=== PATIENT | male | born 2000 | race Caucasian/White ===

== ENCOUNTER 2020-03-06 09:39 | Inpatient (IN) | payer OTHER ==
[~2020-03-06] VITALS: Ht 154.9 cm; Wt 90.9 kg
--- NOTE | 2020-03-06 10:30 | RAD ---
Right knee 3 views. HISTORY: Right knee injury, fell yesterday 3 views were taken of the right knee. There is not evidence of an acute fracture or osseous abnormali ty or joint effusion. IMPRESSION: 1. Negative right knee. Electronically signed by: Jovan Aguayo MD (03/06/2020 10:28 AM) [id number]
--- NOTE | 2020-03-06 10:32 | RAD ---
Right wrist 3 views. HISTORY: Fell yesterday, wrist injury 3 views were taken of the right wrist. There is a fracture the distal radius with mild dorsal displac ement and angulation. There is impaction at the posterior cortex. There is a fracture of the ulnar st yloid. IMPRESSION: 1. Displaced angulated fracture distal radius with fracture ulnar styloid. Electronically signed by: Jovan Aguayo MD (03/06/2020 10:30 AM) [id number]
[2020-03-06 11:20] LABS: BASO # 0.1 x10^3/uL (0.0-0.2); BASO % 1 % (0-3); EOS % 0 % (0-3); HEMATOCRIT 44.3 % (39.0-53.0); HEMOGLOBIN 15.5 g/dL (13.0-17.5); LYMPH # 3.1 x10^3/uL (1.0-4.8); LYMPH % 25 % (24-48); MEAN CORPUSCULAR HEMOGLOBIN 30 pg (25-35); MEAN CORPUSCULAR HGB CONC 35 g/dL (31-37); MEAN CORPUSCULAR VOLUME 85 fL (79-100); MONO # 1.3 x10^3/uL (0.0-1.1); MONO % 10 % (0-9); NEUT % 64 % (31-73); PLATELET COUNT 286 x10^3/uL (140-400); RED BLOOD COUNT 5.22 x10^6/uL (4.30-5.70); RED CELL DISTRIBUTION WIDTH 13.3 % (11.5-14.5); WHITE BLOOD COUNT 12.5 x10^3/uL (4.0-11.0)
[2020-03-06 11:25] LABS: CALCIUM 9.5 mg/dL (8.5-10.1); CREATININE 1.3 mg/dL (0.7-1.3); GFR 71.1
[2020-03-06] MEDS ORDERED: ONDANSETRON PF 4 MG/2 ML VIAL. IVP PRN (11:45)
[2020-03-06] MEDS ORDERED: MORPHINE SULFATE 4 MG/ML VIAL. IV ONE (11:45)
--- NOTE | 2020-03-06 12:11 | PDOC2 ---
CONSULT Date of Consult Date of Consult DATE: 03/06/20 TIME: 12:10 Reason for Consult Reason for Consult: Right wrist fracture Identification/Chief Complaint Chief Complaint Right wrist pain after a fall and right knee swelling Source Source: Chart review, Patient History of Present Illness Reason for Visit: This 19-year-old left-handed young man was skiing at [employer] and fell injuring his right wrist and his right knee. X-rays in the emergency room rob wed a displaced distal radius fracture. He was admitted for operative care of the displaced distal radius fracture. He has a massive knee effusion. 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 (I happen to be friends of the [employer], Jared Douglas, whom the patient knows.) Past Surgical History Past Surgical History wisdom teeth Current Medications Current Medications Current Medications Morphine Sulfate (Morphine Sulfate) 4 mg 1X ONCE IV Last administered on 03/06/20at 12:07; Start 03/06/20 at 11:45; Stop 03/06/20 at 11:47; Status DC Ondansetron HCl (Zofran) 4 mg 1X PRN IVP NAUSEA Last administered on 03/06/20at 12:07; Start 03/06/20 at 11:45 Allergies Allergies: Coded Allergies: No Known Drug Allergies (Unverified , 03/06/20) Physical Exam General: Alert, Cooperative HEENT: Atraumatic Lungs: Normal air movement Heart: Regular rate Abdomen: Soft Extremities: Normal pulses, Other (The right wrist is in a splint which was not removed for the exam despite the splint there is slight deformity. There is reported tenderness at the wrist. Motion is decreased at the fingers but there is no evidence of specific neurovascular injury. Capillary refill is normal. Pu lse is not assessable due to the tenderness of the wrist. Light touch sensation is intact. Motor function is present for the radial ulnar and median nerves. There is no tenderness at the elbow. The skin is reported as intact over the fracture.) Skin: No significant lesion Neuro: Normal tone, Sensation intact MUSCULOSKELETAL: Abnormal exam of right (Knee. There is tenderness and a massive knee effusion. There is limited range of motion due to the effusion and examination is difficult due to guarding.) Vitals VITALS Vital Signs Date Time Temp Pulse Resp B/P (MAP) Pulse Ox O2 Delivery O2 Flow Rate FiO2 03/06/20 10:07 98.4 83 18 142/85 (104) 95 Room Air 98.4 Labs Labs Laboratory Tests Test 03/06/20 11:11 White Blood Count 12.5 x10^3/uL (4.0-11.0) Red Blood Count 5.22 x10^6/uL (4.30-5.70) Hemoglobin 15.5 g/dL (13.0-17.5) Hematocrit 44.3 % (39.0-53.0) Mean Corpuscular Volume 85 fL (79-100) Mean Corpuscular Hemoglobin 30 pg (25-35) Mean Corpuscular Hemoglobin Concent 35 g/dL (31-37) Red Cell Distribution Width 13.3 % (11.5-14.5) Platelet Count 286 x10^3/uL (140-400) Neutrophils (%) (Auto) 64 % (31-73) Lymphocytes (%) (Auto) 25 % (24-48) Monocytes (%) (Auto) 10 % (0-9) Eosinophils (%) (Auto) 0 % (0-3) Basophils (%) (Auto) 1 % (0-3) Neutrophils # (Auto) 8.0 x10^3/uL (1.8-7.7) Lymphocytes # (Auto) 3.1 x10^3/uL (1.0-4.8) Monocytes # (Auto) 1.3 x10^3/uL (0.0-1.1) Eosinophils # (Auto) 0.0 x10^3/uL (0.0-0.7) Basophils # (Auto) 0.1 x10^3/uL (0.0-0.2) Sodium Level 137 mmol/L (136-145) Potassium Level 4.0 mmol/L (3.5-5.1) Chloride Level 104 mmol/L (98-107) Carbon Dioxide Level 25 mmol/L (21-32) Anion Gap 8 (6-14) Blood Urea Nitrogen 12 mg/dL (8-26) Creatinine 1.3 mg/dL (0.7-1.3) Estimated GFR (Cockcroft-Gault) 71.1 Glucose Level 100 mg/dL (70-99) Calcium Level 9.5 mg/dL (8.5-10.1) SARS-CoV-2 Antigen (Rapid) Negative (NEGATIVE) Laboratory Tests Test 03/06/20 11:11 White Blood Count 12.5 x10^3/uL (4.0-11.0) Red Blood Count 5.22 x10^6/uL (4.30-5.70) Hemoglobin 15.5 g/dL (13.0-17.5) Hematocrit 44.3 % (39.0-53.0) Mean Corpuscular Volume 85 fL (79-100) Mean Corpuscular Hemoglobin 30 pg (25-35) Mean Corpuscular Hemoglobin Concent 35 g/dL (31-37) Red Cell Distribution Width 13.3 % (11.5-14.5) Platelet Count 286 x10^3/uL (140-400) Neutrophils (%) (Auto) 64 % (31-73) Lymphocytes (%) (Auto) 25 % (24-48) Monocytes (%) (Auto) 10 % (0-9) Eosinophils (%) (Auto) 0 % (0-3) Basophils (%) (Auto) 1 % (0-3) Neutrophils # (Auto) 8.0 x10^3/uL (1.8-7.7) Lymphocytes # (Auto) 3.1 x10^3/uL (1.0-4.8) Monocytes # (Auto) 1.3 x10^3/uL (0.0-1.1) Eosinophils # (Auto) 0.0 x10^3/uL (0.0-0.7) Basophils # (Auto) 0.1 x10^3/uL (0.0-0.2) Sodium Level 137 mmol/L (136-145) Potassium Level 4.0 mmol/L (3.5-5.1) Chloride Level 104 mmol/L (98-107) Carbon Dioxide Level 25 mmol/L (21-32) Anion Gap 8 (6-14) Blood Urea Nitrogen 12 mg/dL (8-26) Creatinine 1.3 mg/dL (0.7-1.3) Estimated GFR (Cockcroft-Gault) 71.1 Glucose Level 100 mg/dL (70-99) Calcium Level 9.5 mg/dL (8.5-10.1) SARS-CoV-2 Antigen (Rapid) Negative (NEGATIVE) Images Images PATIENT: JOSE VASQUEZ ACCOUNT: [id number] : 2000 LOCATION: ER AGE: 19 SEX: M EXAM STATUS: REG ER ORD. PHYSICIAN: VANDANA CARNEY DO REASON: FELL YESTERDAY, RIGHT WRIST INJURY, OBVIOUS DEFORMITY PROCEDURE: WRIST 3V RIGHT Right wrist 3 views. HISTORY: Fell yesterday, wrist injury 3 views were taken of the right wrist. There is a fracture the distal radius with mild dorsal displacement and angulation. There is impaction at the posterior cortex. There is a fracture of the ulnar styloid. IMPRESSION: 1. Displaced angulated fracture distal radius with fracture ulnar styloid. Electronically signed by: Jovan Aguayo MD (03/06/2020 10:30 AM) [id number] DICTATED and SIGNED BY: JOVAN AGUAYO MD DATE: 03/06/20 [id number] [facility] [address] [place], [place] [id number] IMAGING REPORT Signed PATIENT: JOSE VASQUEZ ACCOUNT: [id number] : 2000 LOCATION: ER AGE: 19 SEX: M EXAM STATUS: REG ER ORD. PHYSICIAN: VANDANA CARNEY DO REASON: RIGHT KNEE INJURED, FELL YESTERDAY PROCEDURE: KNEE RIGHT 3V Right knee 3 views. HISTORY: Right knee injury, fell yesterday 3 views were taken of the right knee. There is not evidence of an acute fracture or osseous abnormality or joint effusion. IMPRESSION: 1. Negative right knee. Electronically signed by: Jovan Aguayo MD (03/06/2020 10:28 AM) [id number] DICTATED and SIGNED BY: JOVAN AGUAYO MD DATE: 03/06/20 1027 Assessment/Plan Assessment/Plan Planned ORIF distal radius 03/07/2020. Clear liquid breakfast would be acceptable, n.p.o. after that. He has a massive knee effusion and I recommended aspiration of the effusion under anesthesia along with exam under anesthesia. He agrees with that plan. There is a displaced distal radius fracture. We discussed historical treatment such as closed reduction and casting, but such treatment often results in long- term deformity and dysfunction. I recommended open treatment with internal fixation using a volar locked plate and screw construct. The benefits of surgery include improved alignment, and most likely better long-term function. We discussed the potential risks of this treatment which include neurovascular injury, such as to the median nerve or radial artery, risks of tendon injury or tendon problems from the plate, possible need for hardware removal, risks of infection, risks of nonunion or malunion, or other potential surgical or anesthetic complications. Despite potential surgical risks, I believe surgical treatment will give the best result, and I do recommend surgery. He and I discussed the risks benefits and alternatives and he desires to proceed with open treatment internal fixation of the distal radius fracture. TRUE BARRAGAN MD Mar 06, 2020 12:11
--- NOTE | 2020-03-06 12:48 | PHYS DOC ---
Past Medical History Past Medical History: No Pertinent History Past Surgical History: No Surgical History Smoking Status: Never Smoker Alcohol Use: Occasionally General Adult EDM: Chief Complaint: MECHANICAL FALL HPI: HPI: Patient is a 19 year old male who came to ER for evaluation of right knee pain and right wrist pain after he fell yesterday while skiing. Patient denies any head or neck injury. Patient denies any pelvic pain, no hip pain, no back pain. Patient has been able to walk only with pain with his right knee. Review of Systems: Review of Systems: Constitutional: Denies fever or chills. [] Eyes: Denies change in visual acuity. [] HENT: Denies nasal congestion or sore throat. [] Respiratory: Denies cough or shortness of breath. [] Cardiovascular: Denies chest pain or edema. [] GI: Denies abdominal pain, nausea, vomiting, bloody stools or diarrhea. [] : Denies dysuria. [] Musculoskeletal: Denies back pain, POSITIVE FOR RIGHT KNEE PAIN, RIGHT WRIST PAIN Integument: Denies rash. [] Neurologic: Denies headache, focal weakness or sensory changes. [] Endocrine: Denies polyuria or polydipsia. [] Lymphatic: Denies swollen glands. [] Psychiatric: Denies depression or anxiety. [] Heart Score: Risk Factors: Risk Factors: DM, Current or recent (<one month) smoker, HTN, HLP, family history of CAD, obesity. Risk Scores: Score 0 - 3: 2.5% MACE over next 6 weeks - Discharge Home Score 4 - 6: 20.3% MACE over next 6 weeks - Admit for Clinical Observation Score 7 - 10: 72.7% MACE over next 6 weeks - Early Invasive Strategies Current Medications: Current Medications Medications (Trade) Dose Ordered Sig/Josy Start Time Stop Time Status Last Admin Dose Admin Morphine Sulfate (Morphine Sulfate) 4 mg 1X ONCE 03/06/20 11:45 03/06/20 11:47 DC 03/06/20 12:07 4 MG Ondansetron HCl (Zofran) 4 mg 1X PRN 03/06/20 11:45 03/06/20 12:07 4 MG Allergies: Allergies: Allergies Coded Allergies Type Severity Reaction Last Updated Verified No Known Drug Allergies 03/06/20 No Physical Exam: PE: Constitutional: Well developed, well nourished, no acute distress, non-toxic appearance. [] HENT: Normocephalic, atraumatic, bilateral external ears normal, oropharynx moist, no oral exudates, nose normal. [] Eyes: PERRLA, EOMI, conjunctiva normal, no discharge. [] Neck: Normal range of motion, no tenderness, supple, no stridor. [] Cardiovascular:Heart rate regular rhythm, no murmur [] Lungs & Thorax: Bilateral breath sounds clear to auscultation [] Abdomen: Bowel sounds normal, soft, no tenderness, no masses, no pulsatile masses. [] Skin: Warm, dry, no erythema, no rash. [] Back: No tenderness, no CVA tenderness. [] Extremities: RIGHT WRIST APPEARED DEFORMED CONSISTENT WITH FRACTURE, NO OPEN WOUND, RIGHT ANTERIOR KNEE WITH SUPERFICIAL SKIN ABRASION, RIGHT KNEE JOINT IS STABLE. Neurologic: Alert and oriented X 3, normal motor function, normal sensory function, no focal deficits noted. [] Psychologic: Affect normal, judgement normal, mood normal. [] Current Patient Data: Labs: Laboratory Tests Test 03/06/20 11:11 White Blood Count 12.5 x10^3/uL (4.0-11.0) H Red Blood Count 5.22 x10^6/uL (4.30-5.70) Hemoglobin 15.5 g/dL (13.0-17.5) Hematocrit 44.3 % (39.0-53.0) Mean Corpuscular Volume 85 fL (79-100) Mean Corpuscular Hemoglobin 30 pg (25-35) Mean Corpuscular Hemoglobin Concent 35 g/dL (31-37) Red Cell Distribution Width 13.3 % (11.5-14.5) Platelet Count 286 x10^3/uL (140-400) Neutrophils (%) (Auto) 64 % (31-73) Lymphocytes (%) (Auto) 25 % (24-48) Monocytes (%) (Auto) 10 % (0-9) H Eosinophils (%) (Auto) 0 % (0-3) Basophils (%) (Auto) 1 % (0-3) Neutrophils # (Auto) 8.0 x10^3/uL (1.8-7.7) H Lymphocytes # (Auto) 3.1 x10^3/uL (1.0-4.8) Monocytes # (Auto) 1.3 x10^3/uL (0.0-1.1) H Eosinophils # (Auto) 0.0 x10^3/uL (0.0-0.7) Basophils # (Auto) 0.1 x10^3/uL (0.0-0.2) Sodium Level 137 mmol/L (136-145) Potassium Level 4.0 mmol/L (3.5-5.1) Chloride Level 104 mmol/L (98-107) Carbon Dioxide Level 25 mmol/L (21-32) Anion Gap 8 (6-14) Blood Urea Nitrogen 12 mg/dL (8-26) Creatinine 1.3 mg/dL (0.7-1.3) Estimated GFR (Cockcroft-Gault) 71.1 Glucose Level 100 mg/dL (70-99) H Calcium Level 9.5 mg/dL (8.5-10.1) SARS-CoV-2 Antigen (Rapid) Negative (NEGATIVE) Laboratory Tests 03/06/20 11:11 Laboratory Tests 03/06/20 11:11 Vital Signs: Vital Signs Date Time Temp Pulse Resp B/P (MAP) Pulse Ox O2 Delivery O2 Flow Rate FiO2 03/06/20 10:07 98.4 83 18 142/85 (104 95 Room Air 98.4 EKG: EKG: [] Radiology/Procedures: Radiology/Procedures: [][facility] [address] [place] [address] IMAGING REPORT Signed PATIENT: JOSE VASQUEZ ACCOUNT: [id number] : 2000 LOCATION: ER AGE: 19 SEX: M EXAM STATUS: REG ER ORD. PHYSICIAN: VANDANA CARNEY DO REASON: FELL YESTERDAY, RIGHT WRIST INJURY, OBVIOUS DEFORMITY PROCEDURE: WRIST 3V RIGHT Right wrist 3 views. HISTORY: Fell yesterday, wrist injury 3 views were taken of the right wrist. There is a fracture the distal radius with mild dorsal displacement and angulation. There is impaction at the posterior cortex. There is a fracture of the ulnar styloid. IMPRESSION: 1. Displaced angulated fracture distal radius with fracture ulnar styloid. Electronically signed by: Jovan Aguayo MD (03/06/2020 10:30 AM) [id number] DICTATED and SIGNED BY: JOVAN AGUAYO MD DATE: 03/06/20 [id number] SPLINTING PROCEDURE: RIGHT WRIST WAS SPLINTED BY THIS PHYSICIAN WITH ORTHOGLASS MATERIAL, VOLAR COLLE SPLINT. POST SPLINTING EXAM: NEUROVASCULAR INTACT. Course & Med Decision Making: Course & Med Decision Making Pertinent Labs and Imaging studies reviewed. (See chart for details) Patient is a 19-year-old man who was evaluated in the ER for right knee pain and right wrist pain after he fell while he was skiing yesterday. X-ray of the right knee did not show any acute problem. X-ray of the right wrist show displaced angulated fracture distal radius and ulnar styloid process fracture. Discussed with orthopedic surgeon on-call Dr. Jt Rooney who recommended patient be admitted for definitive surgical treatment. Discussed with Dr. Leger who agreed to admit the patient. Marilia Disclaimer: Marilia Disclaimer: This electronic medical record was generated, in whole or in part, using a voice recognition dictation system. Departure Departure Impression: Primary Impression: Closed fracture of right distal radius and ulna Disposition: ADMITTED INPT THIS HOSP Admitting Physician: HIMS (Dr. Leger) Condition: STABLE Referrals: NO PCP (PCP) VANDANA CARNEY DO Mar 06, 2020 12:48
--- NOTE | 2020-03-06 13:21 | SSS ---
ADMIT DATE: 03/06/2020 CHIEF COMPLAINT: Fall while skiing at [employer] with right wrist pain. HISTORY OF PRESENT ILLNESS: The patient is a pleasant 19-year-old healthy male, who basically was skiing at [employer], fell and has fractured his wrist. ER physician called me. We are admitting the patient with consultation to Orthopedics. He is going to surgery today, I believe. PAST MEDICAL HISTORY: Benign. ALLERGIES: None. FAMILY HISTORY: Diabetes. SOCIAL HISTORY: He does not drink, smoke or take drugs. He works making [employer]. MEDICATIONS: Reviewed, please refer to the MRAD. REVIEW OF SYSTEMS: GENERAL: No history of weight change, weakness or fevers. SKIN: No bruising, hair changes or rashes. EYES: No blurred, double or loss of vision. NOSE AND THROAT: No history of nosebleeds, hoarseness or sore throat. HEART: No history of palpitations, chest pain or shortness of breath on exertion. LUNGS: Denies cough, hemoptysis, wheezing or shortness of breath. GASTROINTESTINAL: Denies changes in appetite, nausea, vomiting, diarrhea or constipation. GENITOURINARY: No history of frequency, urgency, hesitancy or nocturia. NEUROLOGIC: Denies history of numbness, tingling, tremor or weakness. PSYCHIATRIC: No history of panic, anxiety or depression. ENDOCRINE: No history of heat or cold intolerance, polyuria or polydipsia. EXTREMITIES: He complains of right wrist pain. PHYSICAL EXAMINATION: VITALS: Within normal limits and are stable. GENERAL: No apparent distress. Alert and oriented. HEENT: Normal cephalic atraumatic, external auditory canals are patent. Eyes: Extraocular muscles are intact, pupils are equally round and reactive to light and accommodation. MUSCULOSKELETAL: Well developed, well nourished, good range of motion. ENDOCRINE: No thyromegaly was palpated. LYMPHATICS: No cervical chain or axillary nodes were noted. HEMATOPOIETIC: No bruising. NECK: Supple, no JVD, no thyromegaly was noted. LUNGS: Clear to auscultation in all lung sarmiento without rhonchi or wheezing. HEART: RRR, S1, S2 present. Peripheral pulses intact, no obvious murmurs were noted. ABDOMEN: Soft, nontender. Positive bowel sounds no organomegaly, normal bowel sounds. EXTREMITIES: The right wrist is deformed and painful. The neurovascular bundle appears to be intact. NEUROLOGIC: Normal speech, normal tone. A and O x 3, moves all extremities, no obvious focal deficits. PSYCHIATRIC: Normal affect, normal mood. Stable. SKIN: No ulcerations or rashes, good skin turgor, no jaundice. VASCULAR: Good capillary refill, neurovascular bundle appears to be intact. LABORATORY DATA: White count is 12. Electrolytes are normal. ASSESSMENT AND PLAN: Fall with right wrist fracture. The patient is being admitted. We will consult Dr. Rooney. I think the patient is going to surgery today. Postoperatively, he will need some wound care and pain meds and hope to discharge tomorrow. LUBA BACH DO DR: FREDERIC/nimco JOB#: [id number] / [id number]
[2020-03-06 16:04] VITALS: BP 126/62
[2020-03-06] MEDS: MORPHINE SULFATE 2 MG/ML VIAL. IV PRN ×2 (16:29→20:38)
[2020-03-06 19:00] VITALS: BP 133/62
[2020-03-06] MEDS ORDERED: oxyCODONE/APAP 5/325 1 TAB TABLET PO PRN ×2 (20:00)
[2020-03-06 23:00] VITALS: BP 135/66
[2020-03-07] VITALS (9 sets, daily range): BP systolic 133–156; BP diastolic 64–78
[2020-03-07] MEDS: MORPHINE SULFATE 2 MG/ML VIAL. IV PRN ×2 (01:30→08:23)
[2020-03-07] MEDS ORDERED: ONDANSETRON PF 4 MG/2 ML VIAL. IV PRN (07:00)
[2020-03-07] MEDS ORDERED: IV RINGERS,LACTATED 1000ML 1,000 ML IV SCH (07:00)
[2020-03-07] MEDS ORDERED: MORPHINE SULFATE 2 MG/ML VIAL. IV PRN (07:00)
[2020-03-07] MEDS ORDERED: HYDROmorphone 2 MG/ML VIAL IV PRN (07:00)
[2020-03-07] MEDS ORDERED: fentaNYL PF VIAL 100 MCG/2 ML VIAL IV PRN (07:00)
[2020-03-07] MEDS ORDERED: PROCHLORPERAZINE 10 MG/2 ML VIAL. IV PRN (07:00)
[2020-03-07] MEDS ORDERED: LIDOCAINE 1% PF 2 ML VIAL. ID PRN (07:00)
--- NOTE | 2020-03-07 08:11 | PDOC1 ---
History and Physical Date of Service: DOS: DATE: 03/07/20 TIME: 08:09 Chief Complaint: Chief Complain: Mechanical fall from skiing History of Present Illness: HPI: 19 year old male who came to ER for evaluation of right knee pain and right wrist pain after he fell yesterday while skiing. Patient denies any head or neck injury. Patient denies any pelvic pain, no hip pain, no back pain. Patient has been able to walk only with pain with his right knee. Past Medical/Surgical History: PMH/PSH: Negative medical or surgical history Allergies: Allergies: Coded Allergies: No Known Drug Allergies (Unverified , 03/06/20) Family History: Family History: Reviewed with no pertinent findings Social History: Social History: Denies tobacco, drug or alcohol abuse Current Medications: Current Medications Current Medications Morphine Sulfate (Morphine Sulfate) 4 mg 1X ONCE IV Last administered on 03/06/20at 12:07; Start 03/06/20 at 11:45; Stop 03/06/20 at 11:47; Status DC Ondansetron HCl (Zofran) 4 mg 1X PRN IVP NAUSEA Last administered on 03/06/20at 12:07; Start 03/06/20 at 11:45 Ondansetron HCl (Zofran) 4 mg PRN Q6HRS PRN IV NAUSEA/VOMITING; Start 03/07/20 at 07:00; Stop 03/08/20 at 06:59 Fentanyl Citrate (Fentanyl 2ml Vial) 25 mcg PRN Q5MIN PRN IV MILD PAIN 1-3; Start 03/07/20 at 07:00; Stop 03/08/20 at 06:59 Fentanyl Citrate (Fentanyl 2ml Vial) 50 mcg PRN Q5MIN PRN IV MODERATE TO SEVERE PAIN; Start 03/07/20 at 07:00; Stop 03/08/20 at 06:59 Morphine Sulfate (Morphine Sulfate) 1 mg PRN Q10MIN PRN IV SEVERE PAIN 7-10; Start 03/07/20 at 07:00; Stop 03/08/20 at 06:59 Ringer's Solution 1,000 ml @ 30 mls/hr Q24H IV ; Start 03/07/20 at 07:00; Stop 03/07/20 at 18:59 Lidocaine HCl (Xylocaine-Mpf 1% 2ml Vial) 2 ml PRN 1X PRN ID PRIOR TO IV START; Start 03/07/20 at 07:00; Stop 03/08/20 at 06:59 Hydromorphone HCl (Dilaudid) 0.5 mg PRN Q10MIN PRN IV SEV PAIN, Second choice; Start 03/07/20 at 07:00; Stop 03/08/20 at 06:59 Prochlorperazine Edisylate (Compazine) 5 mg PACU PRN PRN IV NAUSEA, MRX1; Start 03/07/20 at 07:00; Stop 03/08/20 at 06:59 Morphine Sulfate (Morphine Sulfate) 4 mg PRN Q2HR PRN IV PAIN Last administered on 03/07/20at 01:30; Start 03/06/20 at 16:00 Oxycodone/ Acetaminophen (Percocet 5/325) 1 tab PRN Q4HRS PRN PO PAIN; Start 03/06/20 at 20:00 Cefazolin Sodium/ Dextrose 50 ml @ 100 mls/hr 1X PREOP PRN IV SEE COMMENTS; Start 03/07/20 at 06:00; Stop 03/07/20 at 15:00 Oxycodone/ Acetaminophen (Percocet 5/325) 2 tab PRN Q4HRS PRN PO PAIN; Start 03/06/20 at 20:00 Active Scripts Active Reported No Known Medications Prior To Admisstion (Info) Each 1 Each 1X ROS: Review of Systems Review of System REVIEW OF SYSTEMS: GENERAL: Denies weakness SKIN: No bruising, hair changes or rashes. EYES: No blurred, double or loss of vision. NOSE AND THROAT: No history of nosebleeds, hoarseness or sore throat. HEART: No history of palpitations, chest pain or shortness of breath on exertion. LUNGS: Denies cough, hemoptysis, wheezing or shortness of breath. GASTROINTESTINAL: Denies changes in appetite, nausea, vomiting, diarrhea or constipation. GENITOURINARY: No history of frequency, urgency, hesitancy or nocturia. NEUROLOGIC: Denies history of numbness, tingling, or tremor. PSYCHIATRIC: No history of panic, anxiety or depression. ENDOCRINE: No history of heat or cold intolerance, polyuria or polydipsia. EXTREMITIES: Denies joint pain, pain on walking or stiffness. Physical Exam: Vital Signs: Vital Signs Date Time Temp Pulse Resp B/P (MAP) Pulse Ox O2 Delivery O2 Flow Rate FiO2 03/07/20 07:05 Room Air 03/07/20 07:00 97.8 66 18 135/78 (97) 95 97.8 Physcial Exam: GEN: No apparent distress. Alert and oriented HEENT: Normal cephalic, atraumatic, external auditory canals are patent EYES: Extraocular muscles are intact, pupil are equally round and reactive to light and accommodation MUSCULOSKELETAL: Well developed , well nourished, good range of motion ENDOCRINE: No thyromegaly was palpated LYMPHATICS: No cervical chain or axillary nodes were noted HEMATOPOIETIC: No bruising NECK: Supple, no JVD, no thyromegaly was noted LUNGS: Clear to auscultation in all lung sarmiento without rhonchi or wheezing HEART: RRR, S!, S2 present. Peripheral pulses intact, no obvious murmurs noted ABDOMEN: Soft, nontender. Positive bowel sounds, no organomegaly, normal bowel sounds EXTREMITIES: Without clubbing, cyanosis, or edema. Pedal pulses intact. Negative Homans sign NEUROLOGIC: Normal speech and tone. A&O x 3, moves all extremities, no obvious focal deficits PSYCHIATRIC: Normal affect, normal mood. Stable SKIN: No ulcerations or rashes, good skin turgor, no jaundice VASCULAR: Good capillary refill, neurovascular bundle appears to be intact Labs: Labs: Laboratory Tests Test 03/06/20 11:11 White Blood Count 12.5 x10^3/uL (4.0-11.0) Red Blood Count 5.22 x10^6/uL (4.30-5.70) Hemoglobin 15.5 g/dL (13.0-17.5) Hematocrit 44.3 % (39.0-53.0) Mean Corpuscular Volume 85 fL (79-100) Mean Corpuscular Hemoglobin 30 pg (25-35) Mean Corpuscular Hemoglobin Concent 35 g/dL (31-37) Red Cell Distribution Width 13.3 % (11.5-14.5) Platelet Count 286 x10^3/uL (140-400) Neutrophils (%) (Auto) 64 % (31-73) Lymphocytes (%) (Auto) 25 % (24-48) Monocytes (%) (Auto) 10 % (0-9) Eosinophils (%) (Auto) 0 % (0-3) Basophils (%) (Auto) 1 % (0-3) Neutrophils # (Auto) 8.0 x10^3/uL (1.8-7.7) Lymphocytes # (Auto) 3.1 x10^3/uL (1.0-4.8) Monocytes # (Auto) 1.3 x10^3/uL (0.0-1.1) Eosinophils # (Auto) 0.0 x10^3/uL (0.0-0.7) Basophils # (Auto) 0.1 x10^3/uL (0.0-0.2) Sodium Level 137 mmol/L (136-145) Potassium Level 4.0 mmol/L (3.5-5.1) Chloride Level 104 mmol/L (98-107) Carbon Dioxide Level 25 mmol/L (21-32) Anion Gap 8 (6-14) Blood Urea Nitrogen 12 mg/dL (8-26) Creatinine 1.3 mg/dL (0.7-1.3) Estimated GFR (Cockcroft-Gault) 71.1 Glucose Level 100 mg/dL (70-99) Calcium Level 9.5 mg/dL (8.5-10.1) SARS-CoV-2 Antigen (Rapid) Negative (NEGATIVE) Laboratory Tests Test 03/06/20 11:11 White Blood Count 12.5 x10^3/uL (4.0-11.0) Red Blood Count 5.22 x10^6/uL (4.30-5.70) Hemoglobin 15.5 g/dL (13.0-17.5) Hematocrit 44.3 % (39.0-53.0) Mean Corpuscular Volume 85 fL (79-100) Mean Corpuscular Hemoglobin 30 pg (25-35) Mean Corpuscular Hemoglobin Concent 35 g/dL (31-37) Red Cell Distribution Width 13.3 % (11.5-14.5) Platelet Count 286 x10^3/uL (140-400) Neutrophils (%) (Auto) 64 % (31-73) Lymphocytes (%) (Auto) 25 % (24-48) Monocytes (%) (Auto) 10 % (0-9) Eosinophils (%) (Auto) 0 % (0-3) Basophils (%) (Auto) 1 % (0-3) Neutrophils # (Auto) 8.0 x10^3/uL (1.8-7.7) Lymphocytes # (Auto) 3.1 x10^3/uL (1.0-4.8) Monocytes # (Auto) 1.3 x10^3/uL (0.0-1.1) Eosinophils # (Auto) 0.0 x10^3/uL (0.0-0.7) Basophils # (Auto) 0.1 x10^3/uL (0.0-0.2) Sodium Level 137 mmol/L (136-145) Potassium Level 4.0 mmol/L (3.5-5.1) Chloride Level 104 mmol/L (98-107) Carbon Dioxide Level 25 mmol/L (21-32) Anion Gap 8 (6-14) Blood Urea Nitrogen 12 mg/dL (8-26) Creatinine 1.3 mg/dL (0.7-1.3) Estimated GFR (Cockcroft-Gault) 71.1 Glucose Level 100 mg/dL (70-99) Calcium Level 9.5 mg/dL (8.5-10.1) SARS-CoV-2 Antigen (Rapid) Negative (NEGATIVE) Images: Images Wrist x-ray IMPRESSION: 1. Displaced angulated fracture distal radius with fracture ulnar styloid. Assessment/Plan Assessment/Plan Mechanical fall from activity, skiing, with displaced angulated fracture of the right distal radius and fracture of the right ulnar styloid Admit to medicine for further management Ortho consult PT OT modalities Per Ortho for DVT prophylaxis Regular diet Full code Discussed with RN and SW Disposition pending surgery with orthopedics Surrogate decision maker is the parents Justifications for Admission Other Justification PAGE BATISTA MD Mar 07, 2020 08:11
--- NOTE | 2020-03-07 09:32 | NUR ---
SW following. Discussed with RN, pt from home alone, room air, NPO, rapid COVID-19 negative. Pt having surgery today, potential discharge after surgery. RN advised no SW needs. SW will continue to follow.
[2020-03-07] MEDS ORDERED: PROPOFOL 10 MG/ML (20ML) VIAL. IV ONE ×2 (10:58→12:06)
[2020-03-07] MEDS ORDERED: LIDOCAINE 2% PF 5 ML VIAL. ONE ×2 (10:58→12:06)
[2020-03-07] MEDS ORDERED: DEXAMETHASONE SOD PHOS 4 MG/ML VIAL ONE (12:06)
[2020-03-07] MEDS ORDERED: ONDANSETRON PF 4 MG/2 ML VIAL. ONE (12:07)
[2020-03-07] MEDS ORDERED: MIDAZOLAM HCL/PF 2 MG/2 ML VIAL. ONE (12:07)
[2020-03-07] MEDS ORDERED: fentaNYL PF VIAL 100 MCG/2 ML VIAL ONE ×3 (12:07→14:50)
[2020-03-07] MEDS ORDERED: BUPIVACAINE-EPI 0.25%-1:200000 MPF 30 ML VIAL. INJ ONE ×2 (12:45→13:15)
[2020-03-07] MEDS ORDERED: SEVOFLURANE 61 TO 120 MINUTES. IH ONE (14:04)
[2020-03-07] MEDS ORDERED: KETOROLAC 30 MG/ML VIAL. ONE (14:07)
--- NOTE | 2020-03-07 14:22 | PDOC4 ---
Operative Note Operative Note Date of Procedure: March 07, 2020 Preoperative diagnosis: * Colles' fracture of right radius, initial encounter for closed fracture S52.531A * Right knee effusion M25.461 Postoperative diagnosis: same Procedure: * Right wrist, open treatment of distal radial extra-articular fracture, with internal fixation CPT 32169 * Right knee aspiration (with exam under anesthesia.) CPT 33873 Surgeon: True Rooney MD. Manager Of Learning: RIGO Grissom Anesthesia Type: General EBL: 50 mL Specimens: none Drains: none Complications: none Tourniquet time: 30 minutes Tourniquet pressure: 250 mm Hg Implants: Styker VariAx 2 Distal Radius Plating System INDICATION FOR PROCEDURE: The patient is a 19 year-old who fell skiing and had a displaced right distal radius fracture. I recommended open treatment with internal fixation. We talked about potential risks of surgery such as bleeding, infection, stiffness, need for hardware removal or other potential surgical or anesthetic complications. The patient stated understanding of the risks, benefits and alternatives. The patient also has a significant right knee effusion after the fall skiing, and I recommended aspiration of the effusion under anesthesia, along with examination for ligamentous instability. X-rays of the knee were normal. Written consent was obtained and he desired to proceed with surgery. PROCEDURE IN DETAIL: The patient was identified in the preoperative holding area. The correct right wrist and right knee were marked by me. The patient was taken to the operating room, where a general anesthetic was used. Preoperative antibiotics were given intravenously. A timeout procedure was performed. The right knee was prepared with ChloraPrep laterally, and a 16-gauge needle and 60 mL syringe were used, and 50 mL of serosanguineous type knee fluid were aspirated. There were no fatty droplets, and so I do not believe there is any occult fracture. I then examined the knee under anesthesia, and found stability to varus and valgus stress, and normal anterior drawer, posterior drawer, and Drea tests. The skin was prepared again with ChloraPrep in the lateral knee, and then I injected the right knee joint with 30 mL of 0.25% bupivacaine with epinephrine. A tourniquet was used on the upper right arm. The limb was prepared in sterile fashion with ChloraPrep, and sterile drapes were applied. An Esmarch bandage was used to exsanguinate the limb and the tourniquet was inflated. The volar approach of Gamal was used distally. Sharp dissection was used and Bovie electrocautery was used as needed for hemostasis. The flexor carpi radialis tendon was retracted ulnarly to protect the median nerve. The brachioradialis was retracted radially to protect the radial artery. My physiotherapist's assistant used small Hohmann retractors on the radial side of the distal fragment and ulnar side of the proximal fragment to help maintain reduction. A Weitlaner retractor was also placed. Subperiosteal dissection of the pronator quadratus was performed after an L incision was made and the muscle was reflected across the fracture site. The fracture was easily identified but markedly displaced, comminuted and unstable. I performed a reduction first using a [place] elevator to disimpact the fragments, and using longitudinal traction, and volar to palmar compression, the fracture was able to be reduced as confirmed on the image intensifier. The reduction was stabilized with a K wire prior to plate application. The small image intensifier device was used to check the reduction, and I used the image intensifier throughout the case and interpreted all of the images myself. I then applied the volar plate, placed a single nonlocking screw in the oval hole, and again checked the position of the plate on the image intensifier. I adjusted the plate as needed for satisfactory alignment and fixation. I placed two nonlocking screws distally to compress the plate to the bone. I placed additional locking screws distally and I confirmed the reduction with the image intensifier. Final locking screws were placed in the proximal portion of the plate, and into the shaft. After satisfactory reduction and satisfactory fixation with all the screws, final images were taken. Copious saline irrigation was used. The tourniquet was released and Bovie electrocautery was used for hemostasis. Bupivacaine 0.25% with epinephrine was injected. The incision was closed by me and by my physiotherapist's assistant with #2-0 Vicryl and #3-0 Vicryl in the subcutaneous tissues and #3-0 Prolene in the skin. Xeroform and a sterile dressing and a volar splint were applied. Needle and sponge counts were correct. There were no apparent complications. TRUE ROONEY MD Mar 07, 2020 14:22
[2020-03-07] MEDS ORDERED: OXYC1TAB15 PO (14:26)
[2020-03-07] MEDS ORDERED: PROM25TA10 PO (14:26)
[2020-03-07] MEDS: fentaNYL PF VIAL 100 MCG/2 ML VIAL IV PRN ×2 (14:52→15:01)
--- NOTE | 2020-03-07 18:05 | NUR ---
Discharge Note: JOSE VASQUEZ W4 KANEO[facility] Discharge instructions and discharge home medications reviewed with Patient and patients mother and a copy given. All questions have been answered and understanding verbalized. The following instructions and handouts were given: information about weight bearing status to RUE, wound/surgical incision/cast care, medications, follow up appointments, etc. Discontinued lines and drains: IV line in left AC removed, catheter tip intact. Patient discharged to home with self care with mother, patient ambulated to discharge vehicle.
== END 2020-03-07 18:05 | disposition home or self-care (01) | DRG 512 ==
LOC: ER 09:39 → ED HOLD 11:06 → 4 NORTH 15:56
PROVIDERS: ADMIT Internal Medicine; ATTEND Internal Medicine
PROC: 0S9C3ZZ Drainage of Right Knee Joint, Percutaneous Approach (ICD-10-PCS; 2020-03-07)
PROC: 0PSH04Z Reposition Right Radius with Internal Fixation Device, Open Approach (ICD-10-PCS; 2020-03-07)
PROC: 0PSK04Z Reposition Right Ulna with Internal Fixation Device, Open Approach (ICD-10-PCS; principal; 2020-03-07 15:30)
DX: S52.531A Colles' fracture of right radius, initial encounter for closed fracture (principal); S52.611A Displaced fracture of right ulna styloid process, initial encounter for closed fracture; V00.321A Fall from snow-skis, initial encounter; Y93.23 Activity, snow (alpine) (downhill) skiing, snowboarding, sledding, tobogganing and snow tubing; Z83.3 Family history of diabetes mellitus; Z20.822 Contact with and (suspected) exposure to COVID-19
CPT/HCPCS: 29125; 73110; 73562; 80048; 85025; 87426; 96374; A4565; J0690; J1100; J1885; J2250; J2270; J2405; J2704; J3010; J3490; J7120; U0003; 99285-25; C1713; G0378

== ENCOUNTER → 2020-05-01 | Outpatient (CLI) | payer OTHER ==
[2020-03-07 17:15] VITALS: BP 156/66
[~2020-05-01] MED LIST: OXYC1TAB15 PO; PROM25TA10 PO
--- NOTE | 2020-05-01 08:51 | KCIC ---
EXAMINATION: MRI RIGHT KNEE WITHOUT IV CONTRAST CLINICAL HISTORY: Chronic lateral right knee pain over one year. Painful weightbearing. Skiing accide nt 2 months ago. TECHNIQUE: Multiplanar multisequential images obtained through the knee without intravenous contrast. COMPARISON: Right knee radiographs 03/20/2020 FINDINGS: MENISCI: Medial Meniscus: Intact. Lateral Meniscus: Non-displaced horizontal tear in the posterior horn and body with borderline extrus ion of the body LIGAMENTS: ACL: Intact PCL: Intact MCL: Intact LCL Complex: Intact CARTILAGE: Medial Femoral Condyle: Normal Medial Tibial Plateau: Normal Lateral Femoral Condyle: Normal Lateral Tibial Plateau: Normal Patella: Small area(s) of full thickness cartilage loss and or fissuring with subchondral marrow reac tive/cystic changes in the patellar apex/medial facet Trochlea: Normal TENDONS: Distal quadriceps and patellar tendons intact. Popliteus tendon intact. BONES AND MARROW: No evidence of acute fracture or suspicious marrow replacing process. MUSCLES: Muscle bulk and signal intensity within normal limits. JOINT FLUID AND SYNOVIUM: No joint effusion. No synovitis. No Gutiérrez's cyst. IMPRESSION: Lateral meniscus tear. Mild full-thickness chondral wear in the patella. No acute ligamentous injury. Electronically signed by: Nelson Echeverria DO (05/01/2020 8:48 AM) [id number]
== END ==
LOC: KCIC MRI 07:49
PROVIDERS: ATTEND Orthopaedic Surgery
DX: S83.281A Other tear of lateral meniscus, current injury, right knee, initial encounter (principal); X58.XXXA Exposure to other specified factors, initial encounter; Y93.89 Activity, other specified; Y92.89 Other specified places as the place of occurrence of the external cause; Y99.8 Other external cause status
CPT/HCPCS: 73721

== ENCOUNTER 2020-06-06 08:09 | Day surgery (SDC) | payer OTHER ==
[~2020-06-06] VITALS: Ht 177.8 cm; Wt 95.0 kg
[~2020-06-06 08:09] MED LIST changes: +HYDROmorphone 2 MG/ML VIAL IVP PRN; +IV RINGERS,LACTATED 1000ML 1,000 ML IV SCH; +MORPHINE SULFATE 2 MG/ML VIAL. IVP PRN; +PROCHLORPERAZINE 10 MG/2 ML VIAL. IVP PRN; +fentaNYL PF VIAL 100 MCG/2 ML VIAL IVP PRN
[2020-06-06] MEDS ORDERED: PROPOFOL 10 MG/ML (20ML) VIAL. IV ONE (09:55)
[2020-06-06] MEDS ORDERED: LIDOCAINE 2% PF 5 ML VIAL. ONE (09:55)
[2020-06-06] MEDS ORDERED: ONDANSETRON PF 4 MG/2 ML VIAL. ONE (09:55)
[2020-06-06] MEDS ORDERED: DEXAMETHASONE SOD PHOS 4 MG/ML VIAL ONE (09:55)
[2020-06-06] MEDS ORDERED: fentaNYL PF VIAL 100 MCG/2 ML VIAL ONE ×2 (09:56→11:36)
[2020-06-06] MEDS ORDERED: MIDAZOLAM HCL/PF 2 MG/2 ML VIAL. ONE (09:56)
[2020-06-06] MEDS ORDERED: KETOROLAC 30 MG/ML VIAL. ONE (09:56)
[2020-06-06] MEDS ORDERED: BUPIVACAINE-EPI 0.25% 30 ML VIAL KIT. ONE ×2 (10:11→10:12)
[2020-06-06] MEDS ORDERED: SEVOFLURANE 61 TO 120 MINUTES. IH ONE (11:31)
[2020-06-06] MEDS: fentaNYL PF VIAL 100 MCG/2 ML VIAL IVP PRN ×2 (11:39→11:45)
--- NOTE | 2020-06-06 11:48 | PDOC4 ---
Operative Note Operative Note Date of Procedure: June 06, 2020 Preoperative Diagnosis: right knee lateral meniscus tear Postoperative Diagnosis: complex tear of lateral meniscus, current injury, right knee, initial encounter, S83.271A Procedures Performed: right knee arthroscopy, surgical, with meniscectomy, LATERAL, including meniscal shaving, including debridement/shaving of articular cartilage (chondroplasty) CPT 71044 Surgeon: True Rooney MD Post Closer: RIGO Grissom Anesthesia: General Estimated Blood Loss: 5 mL Specimens: none Drains: none Complications: none Tourniquet time: 23 minutes at 300 mm Hg Indications for Procedure: The patient is a 19-year-old with right knee pain, unrelieved with nonoperative treatment. Exam and MRI are consistent with a meniscus tear. We talked about the risks and benefits of proceeding with an arthroscopic procedure. We talked about potential risks of ongoing pain, progressive arthritis, bleeding, infection, blood clots, or other potential surgical or anesthetic complications. All of the patient's questions about surgery were answered and they desired to proceed. Written consent was obtained. Description of Operation: The patient was identified in the preoperative holding area. The correct right knee was marked by me. The patient was taken to the operating room, where a general anesthetic was used. Preoperative antibiotics were given intravenously. A time-out procedure was performed. A tourniquet was placed on the upper thigh. Local anesthetic 20 mL of 0.25% bupivacaine was injected using orthodontic lab technician nique into the knee joint. The limb was prepared circumferentially with ChloraPrep solution and sterile waterproof arthroscopy drapes were applied. The limb was exsanguinated with an Esmarch bandage and the tourniquet was inflated. Lateral and medial arthroscopy portals were established. The medial meniscus was normal and stable to probing.The medial tibiofemoral joint showed a stellate area of partial thickness chondral damage 8 mm in diameter. There were no loose fragments or any way to improve this with a chondroplasty. This is most consistent with remote trauma involving a direct blow to the front of the knee. The intercondylar notch was free of loose bodies, and the ACL was intact. The lateral tibiofemoral joint showed a complex unrepairable meniscus tear, and a meniscectomy was performed with basket forceps and the motorized shaver back to a smooth stable base. The tear had internal surface white-white zone flaps which were unstable, and a horizontal component extending deeper into the red- white zone. There is no bucket handle pattern and no repairable tear. The lateral articular surfaces showed normal articular surfaces so no chondroplasty was required. The patellofemoral joint showed normal articular surfaces so no chondroplasty was required. The suprapatellar pouch, medial and lateral gutters were free of loose bodies. Copious irrigation was used to drain all meniscal and chondral fragments, and the knee was drained of fluid. The portals were closed with #3-0 Prolene interrupted sutures. Additional local anesthetic, 30 mL of 0.25% bupivacaine with epinephrine was injected. A bulky sterile dressing was applied and the tourniquet was released. Needle and sponge counts were correct and there were no apparent complications. TRUE ROONEY MD Jun 06, 2020 11:48
[2020-06-06 12:00] VITALS: BP 137/43
[2020-06-06] MEDS ORDERED: HYDROcodone/APAP 5/325MG 1 TAB TABLET PO ONE (12:00)
[2020-06-06] MEDS ORDERED: HYDR-2765 PO (12:02)
== END 2020-06-06 13:23 | disposition home or self-care (01) ==
LOC: SURG 08:09
PROVIDERS: ATTEND Orthopaedic Surgery
DX: S83.271A Complex tear of lateral meniscus, current injury, right knee, initial encounter (principal); Z87.891 Personal history of nicotine dependence; Z79.899 Other long term (current) drug therapy; Z72.89 Other problems related to lifestyle; X58.XXXA Exposure to other specified factors, initial encounter; Y93.89 Activity, other specified; Y92.89 Other specified places as the place of occurrence of the external cause; Y99.8 Other external cause status
CPT/HCPCS: 29881; 97116; 97162; 97530; A4930; J0690; J1100; J1885; J2250; J2405; J2704; J3010; A4223